=== PATIENT | male | born 2005 | race Two or more races ===

== ENCOUNTER → 2024-06-22 | Outpatient (CLI) | payer MEDICAID, SELFPAY ==
--- NOTE | 2024-06-22 | XR_ITS ---
Examination: Lumbar spine, 5 views Technique: Lumbar spine AP, lateral, coned lateral lower lumbar spine, bilateral obliques 5 views Exam date and time: June 22, 2024 0727 hours INDICATIONS: Lower back pain beginning 6 months ago FINDINGS: Adequate alignment lumbar vertebral bodies on the lateral view Transitional S1 vertebral body No significant lumbar disc narrowing No spondylolisthesis No cortical bone destruction IMPRESSION: No lumbar fracture or significant arthritic change
== END | disposition home or self-care (01) ==
LOC: CDIM 06:54
PROVIDERS: PCP Physician Assistant; Referring Provider Physician Assistant; Visit Provider Physician Assistant
DX: M54.50 Low back pain, unspecified (principal)
CPT/HCPCS: 72110